=== PATIENT | female | born 1960 | race Caucasian/White ===

== ENCOUNTER 2016-07-21 15:44 | Outpatient (CLI) | payer OTHER ==
[2015-06-11 14:35] VITALS: BP 134/67
[2016-07-21 16:33] LABS: eGFR (African) > 60; eGFR (Non-African) > 60
== END 2016-07-21 15:45 ==
LOC: LAB 15:44
PROVIDERS: ATTEND Orthopaedic Surgery
DX: Z01.812 Encounter for preprocedural laboratory examination (principal); Z01.810 Encounter for preprocedural cardiovascular examination
CPT/HCPCS: 36415; 80048

== ENCOUNTER 2017-04-15 21:16 | Emergency (ER) | payer OTHER ==
--- NOTE | 2017-04-15 21:50 | ED Physician Documentation ---
Head Injury - HISTORIAN Historian: patient - HPI Stated Complaint: fall/laceration Chief Complaint: Head Injury Onset: just prior to arrival Where: other (at [facility]) Timing: still present Context: fall (hit head) Severity: mild Loss of Consciousness: no loss of consciousness - ROS CONST: no problems CVS/RESP: none - PAST HX Past History: none Allergies/Adverse Reactions: Allergies Allergy/AdvReac Type Severity Reaction Status Date / Time No Known Allergies Allergy Verified 04/15/17 21:24 Home Medications: Ambulatory Orders Medication Instructions Recorded NK [NK] 04/15/17 - SOCIAL HX Smoking History: non-smoker Alcohol Use: rarely Drug Use: none - FAMILY HX Family History: none - VITAL SIGNS Vital Signs: Vital Signs Temp Pulse Resp BP Pulse Ox 72 16 137/69 98 04/15/17 21:17 04/15/17 21:17 04/15/17 21:17 04/15/17 21:17 - REVIEWED ASSESSMENTS Nursing Assessment Reviewed: Yes Vitals Reviewed: Yes Procedures Wound Location: head Wound's Depth, Shape: linear Wound Explored: no foreign body removed Betadine Prep?: No (cleaned with hexadyne and water) Anesthesia: 1% Lidocaine (2.6 ml) Volume of Anesthetic: 2.6 Wound Repaired With: sutures Suture Size/Type: 6:0 Number of Sutures: 5 Layer Closure?: No Sterile Dressing Applied?: Yes Splint Applied?: No Sling Applied?: No ED Results Lab/Radiology - Radiology Radiology Impressions: Nasal bones History: Laceration after fall Findings: A nondisplaced nasal tip fracture is present. The anterior nasal spine is intact. Leftward nasal septal deviation is present. Impression: Nasal tip fracture - Orders Orders: ED Orders Category Date Time Status NASAL BONES 3 VIEWS OR MORE [RAD] Stat Exams 04/15/17 Taken Diph,Pertuss(Acell),Tet Vac/Pf [Adacel] Med 04/15/17 23:00 Ordered 0.5 ml IM 1T Lidocaine 1% 5ml(IM or SUTURE) [Xylocaine] Med 04/15/17 21:57 Discontinued 50 mg IJ NOW ONE Head Injury Physical Exam - Physical Exam General Appearance: alert Head: non-tender, no swelling Neck: non-tender, painless ROM, trachea midline, decreased ROM. No: limited ROM , pain with neck movement Nexus Criteria: Nexus criteria neg Eyes: DON, EOMI, lids & conjunct. nml ENT: nml external inspection, pharynx nml Neuro: alert, oriented x3, cooperative, mood/affect nml, other (patient is intoxicated but GCS 15/15, Ox3) Cranial: nml as tested, no evidence of acute CVA, facial droop Cerebellar: nml as tested Sensorimotor: motor nml, sensation nml Resp/CVS: chest non-tender, breath sounds nml, heart sounds nml, no resp. distress, lungs clear, reg. rate & rhythm Abdomen: non-tender, no organomegaly Back: non-tender, painless ROM Skin: warm/dry, other (laceraction to the left forehead - repaired, and left nares superficial abrasion, no repair needed.) Extremities: atraumatic, nml ROM, gait nml - Aline Coma Score Coma Scale Eye Opening: Spontaneous Coma Scale Verbal: Oriented Coma Scale Motor: Localizes to Pain Discharge Clincal Impression: Nasal bone fracture Qualifiers: Encounter type: initial encounter Fracture type: closed Qualified Code(s): S02.2XXA - Fracture of nasal bones, initial encounter for closed fracture Referrals: Lukas Bliss MD [Primary Care Provider] - 2 Days Additional Instructions: Keep the lacerations site clean and dry. Cover with antibiotic ointment, watch for any signs infection. Have sutures removed in 5-7 days. If you have any problems to return to the ED or see your primary care provider. Try to avoid further trauma to your nose. Condition: Stable Disposition: 01 HOME, SELF-CARE Decision to Admit: NO Date of Decison to Admit: 04/15/17 Decision Time: 22:27
[2017-04-15] MEDS ORDERED: Lidocaine 1% 5ml(IM or SUTURE)(PAIN CLINIC) IJ ONE (21:57)
[2017-04-15] MEDS ORDERED: DIPH,PERTUSS(ACELL),TET VAC/PF 0.5 ML DISP.SYRIN IM ONE (22:26)
[2017-04-15] MEDS ORDERED: DIPH,PERTUSS(ACELL),TET VAC/PF 0.5 ML DISP.SYRIN IM SCH (23:00)
[2017-04-15 23:16] VITALS: BP 115/58
--- NOTE | 2017-04-16 01:45 | Diagnostic Imaging Report ---
EZRA BARNES [facility] [address] [facility] [address] [address] Report Submission Date: Apr 15, 2017 10:53:39 PM CDT Patient Study Name: LEONOR BARBOUR Date: Apr 15, 2017 10:35:49 PM CDT MRN: [id number] Modality Type: CR Gender: F Description: NASAL/ORBITS : 58 Institution: [facility] Physician: EZRA BARNES Nasal bones History: Laceration after fall Findings: A nondisplaced nasal tip fracture is present. The anterior nasal spine is intact. Leftward nasal septal deviation is present. Impression: Nasal tip fracture Electronically signed on Apr 15, 2017 10:53:39 PM CDT by: Loc GALINDO
== END 2017-04-15 23:05 | disposition home or self-care (01) ==
LOC: ED 21:16
DX: S02.2XXA Fracture of nasal bones, initial encounter for closed fracture (principal); W19.XXXA Unspecified fall, initial encounter; Y93.9 Activity, unspecified; Y99.9 Unspecified external cause status
CPT/HCPCS: 12001; 70160; 90471; 90715; 99283; 99284

== ENCOUNTER 2017-04-16 12:54 | Emergency (ER) | payer OTHER ==
[2017-04-16 13:06] VITALS: BP 153/69
--- NOTE | 2017-04-16 13:20 | ED Physician Documentation ---
Fall - HISTORIAN Historian: patient, friend - HPI Stated Complaint: Bilateral Knee Pain s/p Fall Chief Complaint: Fall Additional Information: PT TRIPPED LAST NOCT FELL ON BOTH KNEES AND LAC FOREHEAD W/TRAUMA NOSE. SEEN HERE IN ED REPAIRED. THIS AM NOTED NEW PAIN BOTH KNEES W/SIG SWELLING RT PREPATELLAR AREA AND SIG PAIN IN LT KNEE BUT NO SIG SWELLING- STRESS OF JOINT POS BOTH KNEES Onset: yesterday Where: home Context: tripped, lost balance r: moderate Associated Symptoms:: no loss of consciousness Location of Pain/Injury: head, face, lower extremity Injury to Right Extremity: knee Injury to Left Extremity: knee - ROS CONST: no problems NEURO: denies: dizziness, anxiety, depression MS/SKIN/LYMPH: leg swelling (RT PATELLA-PRE BURSA-TENDERNESSW/ /BOTH INFRA AND SUPRA PATELLAR LIGTS). denies: weakness, numbness, neck pain, back pain, ankle swelling - PAST HX Past History: other (HYPOTHRYOID) Allergies/Adverse Reactions: Allergies Allergy/AdvReac Type Severity Reaction Status Date / Time No Known Allergies Allergy Verified 04/16/17 13:05 Home Medications: Ambulatory Orders Medication Instructions Recorded NK [NK] 04/15/17 - SOCIAL HX Smoking History: non-smoker Alcohol Use: occasionally Drug Use: none - FAMILY HX Family History: no significant history - VITAL SIGNS Vital Signs: Vital Signs Temp Pulse Resp BP Pulse Ox 98.1 F 83 18 153/69 96 04/16/17 12:54 04/16/17 12:54 04/16/17 12:54 04/16/17 12:54 04/16/17 12:54 - REVIEWED ASSESSMENTS Nursing Assessment Reviewed: Yes Vitals Reviewed: Yes ED Results Lab/Radiology - Orders Orders: ED Orders Category Date Time Status BILAT KNEES 3 VIEW [RAD] Stat Exams 04/16/17 Ordered Fall Physical Exam - Physical Exam General Appearance: mild distress, moderate distress Head: non-tender, no swelling Neck: non-tender Eye: DON, EOMI (ECCYMOSIS NOSE AND LT SUPRA ORBITAL LAC AND ECCYMOSIS-REPAIRED LAST NOCT DR BARNES) Resp/CVS: chest non-tender, breath sounds nml, no resp. distress, heart sounds nml. No: rib tenderness, decreased breath sounds Abdomen: soft, non-tender Neuro: oriented x3, sensation nml, motor nml, mood/affect nml Skin: color nml. No: cyanosis, diaphoresis, pallor, ecchymosis Back: normal inspection Joint: joints nml (XC KNEES) - Mansoor Coma Score Eyes Open: Spontaneous Speech: Oriented Motor: Obeys Commands Discharge Clincal Impression: fall w/bilat knee pain, pre patellar swelling rt knee Referrals: Lukas Bliss MD [Primary Care Provider] - 2 Days Comments: perhaps use cane keep elevated when possible Condition: Good Disposition: 01 HOME, SELF-CARE Decision to Admit: NO Decision Time: 13:36
--- NOTE | 2017-04-16 14:01 | Diagnostic Imaging Report ---
[facility] [address] [facility] [address] Report Submission Date: Apr 16, 2017 1:34:03 PM LEAVE MANAGER Patient Study Name: LEONOR BARBOUR Date: Apr 16, 2017 1:18:32 PM LEAVE MANAGER MRN: [id number] Modality Type: CR Gender: F Description: LOWER EXTREMITY : 58 Institution: [facility] Physician: ALLYSSA FREEMAN - ER Examination: Plain film knee History: Knee discomfort. Fall Findings: 3 views of the right and left knees demonstrates normal cortical margins. No fracture. No dislocation. No joint effusion. No soft tissue irregularity. Impression: No acute osseous abnormality. Electronically signed on Apr 16, 2017 1:34:03 PM LEAVE MANAGER by: Eduardo GALINDO
== END 2017-04-16 13:42 ==
LOC: ED 12:54
DX: M25.562 Pain in left knee (principal); M25.561 Pain in right knee; M25.461 Effusion, right knee; W19.XXXA Unspecified fall, initial encounter; Y93.9 Activity, unspecified; Y99.9 Unspecified external cause status
CPT/HCPCS: 99283

== ENCOUNTER 2019-02-27 16:09 | Outpatient (CLI) | payer BC ==
--- NOTE | 2019-02-28 09:55 | Diagnostic Imaging Report ---
CADE MAYEN [facility] [address] [facility] [address] [address] Report Submission Date: Feb 27, 2019 5:38:55 PM CDT Patient Study Name: LEONOR BARBOUR Date: Feb 27, 2019 4:10:35 PM CDT Modality Type: DX Gender: F Description: FOOT 3 VIEWS OR MORE : 58 Institution: [facility] Physician: CADE MAYEN Right foot, 3 views HISTORY Injury, pain FINDINGS No fracture, dislocation or abnormal bone production or destruction is identified. Degenerative changes are noted in the midfoot. Plantar calcaneal and Achilles tendon spurs are present. IMPRESSION No acute abnormality. Electronically signed on Feb 27, 2019 5:38:55 PM CDT by: Tahir GALINDO
== END 2019-02-27 16:12 ==
LOC: RAD 16:09
PROVIDERS: ATTEND Family Medicine
DX: S99.921A Unspecified injury of right foot, initial encounter (principal); X50.9XXA Other and unspecified overexertion or strenuous movements or postures, initial encounter
CPT/HCPCS: 73630